=== PATIENT | female | born 1955 | race Hispanic/Latino ===

== ENCOUNTER → 2017-02-24 | Outpatient (CLI) | payer OTHER ==
[~2017-02-24] MED LIST: ASPI-1197 PO; BISO1TAB7 PO; DAPA1TAB5 PO; IOPAMIDOL-370 75 ML VIAL IV ONE; LOVA20TA3 PO; TRAM50TA4 PO
== END | disposition home or self-care (01) ==
LOC: RAH 09:41
PROVIDERS: ATTEND Internal Medicine Cardiovascular Disease
DX: I65.23 Occlusion and stenosis of bilateral carotid arteries (principal)
CPT/HCPCS: 70498; Q9967

== ENCOUNTER → 2017-06-29 | Outpatient (CLI) | payer OTHER ==
[~2017-06-29] MED LIST changes: -IOPAMIDOL-370 75 ML VIAL IV ONE
== END | disposition home or self-care (01) ==
LOC: SHCH 13:30
PROVIDERS: ATTEND Internal Medicine Cardiovascular Disease
DX: I65.23 Occlusion and stenosis of bilateral carotid arteries (principal)
CPT/HCPCS: 93880

== ENCOUNTER → 2018-02-02 | Outpatient (CLI) | payer OTHER | END | disposition home or self-care (01) | LOC: SHCH 13:04 | PROVIDERS: ATTEND Internal Medicine Cardiovascular Disease | DX: I65.23 Occlusion and stenosis of bilateral carotid arteries (principal); I73.9 Peripheral vascular disease, unspecified; I87.2 Venous insufficiency (chronic) (peripheral) | CPT/HCPCS: 93880; 93925; 93970 ==

== ENCOUNTER → 2021-06-22 | Outpatient (CLI) | payer OTHER ==
[~2021-06-22] MED LIST changes: +BISO-1 PO; -BISO1TAB7 PO
== END ==
LOC: SHCH 09:16
PROVIDERS: ATTEND Internal Medicine Cardiovascular Disease
DX: I65.23 Occlusion and stenosis of bilateral carotid arteries (principal)
CPT/HCPCS: 93880

== ENCOUNTER → 2022-12-12 | Outpatient (CLI) | payer MEDICARE ==
[~2022-12-12] MED LIST changes: +REGADENOSON 0.4 MG/5 ML PF SYG IVP ONE
== END | disposition home or self-care (01) ==
LOC: SHCH 07:48
PROVIDERS: ATTEND Internal Medicine Cardiovascular Disease
DX: R94.31 Abnormal electrocardiogram [ECG] [EKG] (principal); R06.02 Shortness of breath; R07.9 Chest pain, unspecified
CPT/HCPCS: 78452; 96374; 93017; J2785; A9500 ×2

== ENCOUNTER → 2022-12-26 | Outpatient (CLI) | payer MEDICARE ==
[~2022-12-26] MED LIST changes: -REGADENOSON 0.4 MG/5 ML PF SYG IVP ONE
== END | disposition home or self-care (01) ==
LOC: SHCH 08:21
PROVIDERS: ATTEND Internal Medicine Cardiovascular Disease
DX: I51.89 Other ill-defined heart diseases (principal); R06.09 Other forms of dyspnea; R07.9 Chest pain, unspecified; R94.31 Abnormal electrocardiogram [ECG] [EKG]
CPT/HCPCS: 93306

== ENCOUNTER → 2022-12-31 | Outpatient (CLI) | payer MEDICARE | END | disposition home or self-care (01) | LOC: LAB 10:47 | PROVIDERS: ATTEND Internal Medicine Cardiovascular Disease | DX: I65.23 Occlusion and stenosis of bilateral carotid arteries (principal) | CPT/HCPCS: 93880 ==

== ENCOUNTER 2024-05-20 17:10 | Emergency (ER) | payer MEDICARE, OTHER ==
[~2024-05-20] VITALS: Ht 154.9 cm; Wt 70.3 kg
--- NOTE | 2024-05-20 17:28 | EKG ---
[facility] Test Date: 2024-05-20 Test Time: 17:26:26 Pat Name: ZARI MEDEL Department: ED Room: Gender: F [employer] Route Aide: [id number] : 1955 Requested By: EDINSON RON Order Number: [id number] Reading MD: Roland Rivera Measurements Intervals [employer] Rate: 89 P: -17 UT: 152 QRS: -1 QRSD: 77 T: 265 QT: 335 QTc: 409 Interpretive Statements Sinus rhythm Probable LVH with secondary repol abnrm Compared to ECG 04/01/2016 08:48:24 ST (T wave) deviation no longer present Possible ischemia no longer present Electronically Signed On 05-22-2024 07:25:05 CDT by Roland Rivera Please click the below link to view image of tracing.
[2024-05-20 17:43] LABS: BASOPHILS # (AUTO) 0.04 K/uL (0.00-0.20); BASOPHILS % (AUTO) 0.3 % (0.0-5.0); EOSINOPHILS # (AUTO) 0.04 K/uL (0.00-0.70); EOSINOPHILS % (AUTO) 0.3 % (0.0-8.0); HEMATOCRIT 34.1 % (36-48); IMMATURE GRANULOCYTE ABSOLUTE 0.09 K/uL (0-1); LYMPHOCYTES # (AUTO) 2.2 K/uL (1.0-4.8); LYMPHOCYTES % (AUTO) 13.6 % (21.0-51.0); MEAN CORPUSCULAR HEMOGLOBIN 27.7 pg (27.0-33.0); MEAN CORPUSCULAR HGB CONC 32.8 g/dL (32.0-36.0); MEAN CORPUSCULAR VOLUME 84.4 fL (79-99); MONOCYTES # (AUTO) 0.7 K/uL (0.1-1.0); MONOCYTES % (AUTO) 4.4 % (3.0-13.0); NEUTROPHILS # (AUTO) 12.8 K/uL (1.8-7.7); NEUTROPHILS % (AUTO) 80.8 % (40.0-77.0); PLATELET COUNT (AUTO) 238 K/uL (130-400); RED BLOOD CELL COUNT(AUTO) 4.04 MIL/uL (4.00-5.50); RED CELL DISTRIBUTION WIDTH 13.5 % (11.0-15.5); WHITE BLOOD COUNT (AUTO) 15.8 K/uL (4.8-10.8)
[2024-05-20 17:57] LABS: CREATININE 1.4 mg/dL (0.5-1.0); POTASSIUM 4.2 mmol/L (3.5-5.1)
[2024-05-20 18:15] LABS: B-TYPE NATRIURETIC PEPTIDE 25 pg/mL (0-100)
--- NOTE | 2024-05-20 18:16 | ERN ---
General Chief Complaint: Cough Stated Complaint: POSSIBLE COLLAPSED LUNG Time Seen by MD: 17:12 History of Present Illness Initial Comments 68-year-old female who presents for cough and chest discomfort. Patient reports she had a fever and cough A few weeks ago. The fevers have subsided, but she continues with a productive cough. She recently had a chest x-ray and they were concerned about a "collapsed lung", prompting her to come to the ER. She denies any shortness of breath. She reports a productive cough. She re ports left-sided chest discomfort, mostly with coughing and movement. She completed a course of outpatient azithromycin. Allergies: Coded Allergies: codeine (Unverified Allergy, Unknown, 04/04/16) HALLUCINATIONS Home Meds Reported Medications Tramadol Hcl (Tramadol HCl) 50 Mg Tablet, 50 MG PO Q6HRS for PAIN LEVEL 6 TO 10, TAB 04/29/16 Dapagliflozin/Metformin HCl (Xigduo Xr 10 mg-1,000 mg Tab) 1 Each Tab.bp.24h, 1 EACH PO DAILY 04/01/16 Bisoprolol Fumarate/Hctz (Bisoprolol-Hctz 10-6.25 mg Tab) 1 Each Tablet, 1 EACH PO DAILY, TAB 04/01/16 Lovastatin (Lovastatin) 20 Mg Tablet, 2 TAB PO DAILY, TAB 04/01/16 Aspirin (Aspirin) 81 Mg Tab.chew, 81 MG PO DAILY, TAB.CHEW 04/01/16 Past Medical History Past Medical History: CHF, Diabetes-Type II, High Cholesterol, Heart Disease, Hypertension Past Surgical History: Hysterectomy ROS Dictation CONSTITUTIONAL: No chills, no fever, no weakness, no diaphoresis, no malaise. HEAD/FACE: No signs of trauma. EENT: No eye pain, no blurred vision, no tearing, no double vision, no ear pain, no ear discharge, no nose pain, no nasal congestion, no throat pain, no throat swelling, no mouth pain. RESPIRATORY: Productive cough CARDIOVASCULAR: Chest pain GASTROINTESTINAL/ABDOMINAL: No abdominal pain, no constipation, no diarrhea, no nausea, no vomiting. GENITOURINARY: No abnormal discharge, no dysuria, no frequent urination, no hematuria. No complaints of pain in the genitals. MUSCULOSKELETAL: No back pain, no gout, no joint pain, no joint swelling, no muscle pain, no muscle stiffness, no neck pain. INTEGUMENTARY: No change in color, no change in hair/nails, no dryness, no lesion, no lumps, no rash. NEUROLOGICAL/PSYCH: No anxiety, not depressed, no emotional problem, no headache, no numbness, no pre-existing deficit, no history of seizures, no tremors, no weakness. HEMATOLOGIC/LYMPHATIC: Not anemic, no history of blood clots, no apparent bleeding, no bruising, glands not swollen. All Systems Negative, Except as Noted. Physical Exam Physical Exam Dictation VITAL SIGNS: Reviewed. GENERAL APPEARANCE: Alert, oriented x3, no acute distress, obese. HEAD AND FACE: Non-traumatic. EYES: PERRL, pink conjunctivas, eyelid no trauma, anterior chamber clear. EARS: Pinnas intact and no signs of trauma or erythema. Ear canals clear and no discharge. TMs no erythema. NOSE: No discharge, no bleeding. OROPHARYNX: Mouth normal, teeth no caries, tongue pink. Pharynx clear, no erythema. Tonsils no exudates, no abscesses noted. Mucous membrane moist. NECK: Supple, non-tender, no thyromegaly, no masses, no JVD, no bruits. BREAST: Deferred. CHEST: No tenderness, no crepitus, no paradoxical movement, no retractions. LUNGS: Clear, well-ventilated, symmetric, no rales, no wheezing, no rhonchi, no stridor, good breath sounds bilaterally. HEART: Regular rate, regular rhythm, no murmur, no gallops. VASCULAR: No peripheral edema. ABDOMEN: Soft, positive bowel sounds, nondistended, no guarding, nontender, no rebound, no masses no hepatomegaly, no splenomegaly, no Silveira's sign, no hernias. RECTAL: Deferred. GENITAL: Deferred. NEUROLOGICAL: Normal speech, gross motor function intact, gross sensory function intact. MUSCULOSKELETAL: Neck nontender, full range of motion, back nontender, full range of motion. EXTREMITIES: Nontender, full range of motion. SKIN: Color pink, dry, no turgor, no rash, no lacerations, no abrasions, no contusions. LYMPHATICS: Deferred. Results Laboratory and Microbiology Lab and Micro Result Laboratory Tests Test 05/20/24 17:36 05/20/24 22:21 White Blood Count 15.8 K/uL (4.8-10.8) H Red Blood Count 4.04 MIL/uL (4.00-5.50) Hemoglobin 11.2 g/dL (12.0-16.0) L Hematocrit 34.1 % (36-48) L Mean Corpuscular Volume 84.4 fL (79-99) Mean Corpuscular Hemoglobin 27.7 pg (27.0-33.0) Mean Corpuscular Hemoglobin Concent 32.8 g/dL (32.0-36.0) Red Cell Distribution Width 13.5 % (11.0-15.5) Platelet Count 238 K/uL (130-400) Mean Platelet Volume 10.2 fL (7.5-10.5) Immature Granulocyte % (Auto) 0.6 % (0-1) Neutrophils (%) (Auto) 80.8 % (40.0-77.0) H Lymphocytes (%) (Auto) 13.6 % (21.0-51.0) L Monocytes (%) (Auto) 4.4 % (3.0-13.0) Eosinophils (%) (Auto) 0.3 % (0.0-8.0) Basophils (%) (Auto) 0.3 % (0.0-5.0) Neutrophils # (Auto) 12.8 K/uL (1.8-7.7) H Lymphocytes # (Auto) 2.2 K/uL (1.0-4.8) Monocytes # (Auto) 0.7 K/uL (0.1-1.0) Eosinophils # (Auto) 0.04 K/uL (0.00-0.70) Basophils # (Auto) 0.04 K/uL (0.00-0.20) Absolute Immature Granulocyte (auto 0.09 K/uL (0-1) Nucleated Red Blood Cells 0.0 % (0.0-0.19) Sodium Level 133 mmol/L (136-145) L Potassium Level 4.2 mmol/L (3.5-5.1) Chloride Level 96 mmol/L (101-111) L Carbon Dioxide Level 28 mmol/L (21-32) Blood Urea Nitrogen 26 mg/dL (7-18) H Creatinine 1.4 mg/dL (0.5-1.0) H Glomerular Filtration Rate Calc 40 mL/min (>90) Random Glucose 161 mg/dL (70-105) H Total Calcium 9.2 mg/dL (8.5-10.1) Total Creatine Kinase 29 U/L (21-232) Troponin I High Sensitivity 4.8 ng/L (4-50) B-Type Natriuretic Peptide 25 pg/mL (0-100) Procalcitonin 0.26 ng/mL (0.05-0.5) Influenza Type A Antigen Negative For Type A Influenza Type B Antigen Negative For Type B SARS-CoV-2 Antigen (Rapid) PRESUMPTIVE NEGATIVE MDM CC: Cough left-sided chest pain, recent fever Historian: Patient Comorbidities: CHF, diabetes, dyslipidemia, CAD, hypertension Limitations by social determinants of health: None Vital signs: Stable, remained stable in the ER Differential diagnosis: Pneumothorax, PE, bronchitis, cardiac disease, fluid overload, other. Labs (independently interpreted by me ): Leukocytosis 15.8k left shift 80% neutrophils. No bands. Hemoglobin 11.2. Sodium 133 chloride 96 consistent with dehydration. BUN 26 creatinine 1.4. Troponin is stable other electrolytes are stable. EKG: Sinus rhythm, rate of 89, normal axis, good R-wave progression. LVH. No STEMI. Independently interpreted by me. PT COVID and Influenza Panels Pending. ED Course Orders Procedure Category Date Status Time Cbc With Differential LAB 05/20/24 Complete 17:23 B-Type Natriuretic LAB 05/20/24 Complete Peptide 17:23 Cardiac Panel LAB 05/20/24 Complete 17:23 Chest 1vw RAD 05/20/24 Taken 17:23 12 Lead Ekg Tracing- EKG 05/20/24 Complete Technical 17:23 Basic Metabolic Panel LAB 05/20/24 Complete 17:23 Procalcitonin LAB 05/20/24 Complete 17:23 Ceftriaxone 1g Vial PHA 05/20/24 Complete (Rocephine 1g Inj) 18:30 Doxycycline Hyclate PHA 05/20/24 Complete (Doxycycline Hyclate 21:00 Covid19 (Sars Antigen LAB 05/20/24 Complete Rapid) 19:01 Influenza Type A & B, LAB 05/20/24 Complete Rapid 19:01 0.9%Nacl 1000ml (Ns PHA 05/20/24 Complete 1000ml) 21:00 Current Medications Medications (Trade) Dose Ordered Sig/Juan Route PRN Reason Start Time Stop Time Status Last Admin Dose Admin Ceftriaxone Sodium (ROCEphine 1G INJ) 1 gm ONCE IVPB 05/20/24 18:30 05/20/24 23:30 DC 05/20/24 23:24 Doxycycline Hyclate (Doxycycline Hyclate) 100 mg BID PO 05/20/24 21:00 05/21/24 00:30 DC 05/20/24 23:24 Sodium Chloride 957 ml @ 319 mls/hr ONCE ONCE IV 05/20/24 21:00 05/20/24 23:59 DC 05/20/24 23:24 Vital Signs Date Time Temp Pulse Resp B/P (MAP) Pulse Ox O2 Delivery O2 Flow Rate FiO2 05/21/24 00:10 98.1 82 16 122/56 97 Room Air* 0 21 05/20/24 22:55 98.2 95 18 114/50 96 Room Air* 0 21 05/20/24 17:19 98.2 95 18 114/50 96 Room Air 0 It is nasal swabs came back negative for COVID negative for influenza. The patient's chest x-ray is pristine her COVID and influenza swabs are negative the patient was not appear to be toxic. She does have an elevated white count but I do not feel that she needs antibiotics right now. I discussed this with her she agrees to come to the emergency room if it gets worse or her see her primary care doctor. DX & DISP Disposition: Discharge Departure Impression: Primary Impression: URTI (infection of the upper respiratory tract) Condition: Stable Additional Instructions: If patient's symptoms persist she should return to the emergency or talk to her primary care physician. Referrals: TREVER COSTA MD (PCP) EDINSON RON DO May 20, 2024 18:16 SUDHA HIGHTOWER MD May 20, 2024 20:57
[2024-05-20 22:49] LABS: INFLUENZA TYPE A Negative For Type A (NEGATIVE); INFLUENZA TYPE B Negative For Type B (NEGATIVE)
[2024-05-20 22:56] LABS: COVID19 (SARS ANTIGEN RAPID) PRESUMPTIVE NEGATIVE (NEGATIVE)
[2024-05-20] MEDS: 0.9%NACL 1000ML 957 ML IV ONE (23:24)
[2024-05-20] MEDS: DOXYCYCLINE HYCLATE 100 MG TABLET PO SCH (23:24)
[2024-05-20] MEDS: cefTRIAXone 1G VIAL IVPB SCH (23:24)
[2024-05-21 00:10] VITALS: BP 122/56; PULSE 82; RESP 16; TEMP 98.1; O2SAT 97
--- NOTE | 2024-05-21 09:09 | HMCIMG ---
CHEST 1VW HISTORY: Dyspnea COMPARISON: 04/01/2016 FINDINGS: A frontal projection of the chest was obtained. No acute pulmonary infiltrates is seen. The heart is normal in size. Prominent interstitial markings are seen. Degenerative changes are seen. Aortic calcifications are seen. IMPRESSION: 1. No acute pulmonary infiltrate is seen.
== END 2024-05-21 00:30 | disposition home or self-care (01) ==
LOC: EDH 17:10
DX: J06.9 Acute upper respiratory infection, unspecified (principal); E11.9 Type 2 diabetes mellitus without complications; E78.00 Pure hypercholesterolemia, unspecified; I11.0 Hypertensive heart disease with heart failure; I50.9 Heart failure, unspecified; Z79.82 Long term (current) use of aspirin; Z79.84 Long term (current) use of oral hypoglycemic drugs; Z79.899 Other long term (current) drug therapy; Z88.5 Allergy status to narcotic agent; Z90.710 Acquired absence of both cervix and uterus; Z20.822 Contact with and (suspected) exposure to COVID-19
CPT/HCPCS: 99283; 96374; 71045; 87426; 82550; 84484; 80048; 83880; 85025; 87804 ×2; 36415; 93005; 84145; J7030; J0696